=== PATIENT | female | born 1975 | race Caucasian/White ===

== ENCOUNTER → 2018-04-05 08:00 | Outpatient (CLI) | payer OTHER ==
[2016-05-08 11:38] VITALS: BMI 24.0
[~2018-04-05 08:00] MED LIST: ACETAMINOPHEN325 MG PO; EXCEDRIN EXTRA1 TAB PO; HYDROCODONE-APA1 TAB PO; IBUPROFEN200 MG PO; IBUPROFEN600 MG PO
== END | disposition home or self-care (01) ==
LOC: D.MAMMO 08:00
DX: Z12.31 Encounter for screening mammogram for malignant neoplasm of breast (principal)

== ENCOUNTER 2018-05-04 08:00 | Outpatient (CLI) | payer OTHER ==
[2016-05-08 11:38] VITALS: BMI 24.0
== END 2018-05-04 10:40 | disposition home or self-care (01) ==
LOC: D.MAMMO 08:00
DX: R92.8 Other abnormal and inconclusive findings on diagnostic imaging of breast (principal)

== ENCOUNTER → 2019-05-03 07:11 | Outpatient (CLI) | payer OTHER ==
[2016-05-08 11:38] VITALS: BMI 24.0
== END | disposition home or self-care (01) ==
LOC: D.US 07:11
PROVIDERS: ATTEND Family Medicine
DX: Z01.01 Encounter for examination of eyes and vision with abnormal findings (principal); H54.50 Low vision, one eye, unspecified eye; Z03.89 Encounter for observation for other suspected diseases and conditions ruled out; I25.10 Atherosclerotic heart disease of native coronary artery without angina pectoris